=== PATIENT | male | born 1930 | race Caucasian/White ===

== ENCOUNTER 2018-12-05 01:02 | Emergency (ER) | payer MEDICARE, MEDICAID ==
[~2018-12-05] VITALS: Ht 180.3 cm; Wt 77.1 kg
[2018-12-05 01:05] VITALS: BP 135/70
--- NOTE | 2018-12-05 01:05 | NUR ---
ED Nurse Note: Patient FLORA RA 62 from [facility] c/o more altered than normal since 1300. Asleep; withdraws to pain. Simple mask; 6L. IV present on right hand.
--- NOTE | 2018-12-05 01:15 | NUR ---
ED Nurse Note: IV access established. Flu swab, blood and urine collected; sent down to lab.
[2018-12-05] MEDS ORDERED: LEVAQUIN500 MG ORAL (01:30)
[2018-12-05] MEDS ORDERED: SORBITOL 70%30 ML PO (01:30)
[2018-12-05] MEDS ORDERED: VANCOMYCIN1 GM IV (01:30)
[2018-12-05] MEDS ORDERED: CEFEPIME-D1 GM/50 ML IVPB (01:30)
[2018-12-05] MEDS ORDERED: SENNA-S TABLET1 EACH PO (01:30)
[2018-12-05] MEDS ORDERED: VALPROIC A250 MG/5 M PO (01:30)
[2018-12-05 01:57] LABS: BASOPHILS % (AUTO) 0.7 % (0.0-2.0); HEMATOCRIT 56.5 % (42.0-52.0); HEMOGLOBIN 17.6 G/DL (14.2-18.0); LYMPHOCYTES % (AUTO) 7.1 % (20.0-45.0); MEAN CORPUSCULAR VOLUME 99 FL (80-99); MONOCYTES % (AUTO) 12.7 % (1.0-10.0); NEUTROPHILS % (AUTO) 79.5 % (45.0-75.0); PLATELET COUNT 308 K/UL (150-450); RED BLOOD COUNT 5.69 M/UL (4.70-6.10); RED CELL DISTRIBUTION WIDTH 13.5 % (11.6-14.8); WHITE BLOOD COUNT 15.4 K/UL (4.8-10.8)
[2018-12-05 02:08] LABS: ANION GAP 15 mmol/L (5-15); BLOOD UREA NITROGEN 43 mg/dL (7-18); CARBON DIOXIDE 23 MMOL/L (21-32); CHLORIDE 112 MMOL/L (98-107); CREATININE 2.5 MG/DL (0.55-1.30); POTASSIUM 4.8 MMOL/L (3.5-5.1); SODIUM 150 MMOL/L (136-145)
[2018-12-05] MEDS ORDERED: Vancomycin 1 GM in D5W 275 ML IVPB SCH (02:15)
[2018-12-05] MEDS ORDERED: Piperacillin/Tazobactam 3.375 GM in NS 110 ML IVPB ONE (02:15)
[2018-12-05 02:22] LABS: ALANINE AMINOTRANSFERASE 22 U/L (12-78); ALBUMIN/GLOBULIN RATIO 0.5 (1.0-2.7); ALKALINE PHOSPHATASE 99 U/L (46-116); ASPARTATE AMINO TRANSFERASE 24 U/L (15-37); BILIRUBIN,TOTAL 1.7 MG/DL (0.2-1.0); CKMB 1.1 NG/ML (0.0-3.6); CREATINE KINASE 75 U/L (26-308)
[2018-12-05 02:26] LABS: APPEARANCE,URINE CLEAR; BILIRUBIN, URINE NEGATIVE (NEGATIVE); GLUCOSE, URINE (UA) 2+ (NEGATIVE); KETONES,URINE 1+ (NEGATIVE); LEUKOCYTE ESTERASE ,URINE 1+ (NEGATIVE); NITRITE,URINE POSITIVE (NEGATIVE); PH,URINE 5 (4.5-8.0); PROTEIN,URINE 3+ (NEGATIVE); UROBILINOGEN,URINE 1 MG/DL (0.0-1.0)
[2018-12-05 02:28] LABS: BILIRUBIN,DIRECT 0.5 MG/DL (0.0-0.3)
[2018-12-05 02:29] LABS: COLOR,URINE YELLOW
--- NOTE | 2018-12-05 03:15 | NUR ---
ED Nurse Note: lactic reflex drawn; sent down to lab.
[2018-12-05 04:21] VITALS: BP 115/53
[2018-12-05] MEDS ORDERED: Insulin Human Regular 100units/ml 3ml IV ONE (04:30)
--- NOTE | 2018-12-05 05:04 | Emergency Room Report ---
History of Present Illness General Chief Complaint: Altered Mental Status Source: EMS Present Illness HPI Patient is an 88-year-old male brought in by [facility] after increased altered mental status. Patient was noted to have prior history of dementia. He was noted to be baseline confused and minimally responsive. Patient was noted to have previous been making incomprehensible sounds. He had prior history of diabetes. Patient was noted to have previous been in hospice for dementia. He had not been noted to have any fever. He had previous episodes of pneumonia. Allergies: Coded Allergies: No Known Allergies (Unverified , 12/05/18) Patient History Past Medical History: see triage record Reviewed Nursing Documentation: PMH: Agreed; PSxH: Agreed Nursing Documentation-PMH Past Medical History: No History, Except For Hx Cardiac Problems: Yes - Atherosclerotic heart disease Hx Hypertension: Yes Hx Diabetes: Yes - type 2 Hx Gastrointestinal Problems: Yes - BPH, anemia, GERD Hx Neurological Problems: Yes - alzheimers, dementia Review of Systems All Other Systems: limited - limited by mental status Physical Exam Vital Signs Date Time Temp Pulse Resp B/P (MAP) Pulse Ox O2 Delivery O2 Flow Rate FiO2 12/05/18 01:03 97.0 94 20 135/70 96 Nasal Cannula 4.0 General Appearance: lethargic, Chronically Ill ENT: dry mucus membranes Neck: limited range of motion Respiratory: rhonchi - right base Cardiovascular #1: normal peripheral pulses, regular rate, rhythm, no edema Gastrointestinal: normal inspection, non tender, soft Neurologic: aphasia, motor weakness Psychiatric: depressed affect Skin: normal inspection, no rash Medical Decision Making Diagnostic Impression: Primary Impression: Altered mental status Additional Impressions: Hyperglycemia Pneumonia Urinary tract infection Renal insufficiency Dementia ER Course Patient presented for altered mental status. Differential diagnosis included but was not limited to ischemic stroke, subarachnoid hemorrhage, hypoglycemia, spinal cord injury, neurodegenerative disorder, urinary tract infection, hypoxemia. Because of complexity of patient's case laboratory testing and imaging studies were ordered.Laboratory testing was notable for some renal insufficiency as well as elevated white count. Huynh catheter was placed due to some hematuria after catheterization Patient initial lactic acid level was noted to be elevated. Chest x-ray 1 view interpreted by me showed normal cardiac size of the right lower lobe infiltrate. CT of head read by radiology showed atrophic changes. Patient was given IV fluids as well as IV antibiotics. Case was discussed with Dr. Jaqueline Galvan [facility] for transfer for continuity of care. Case #[id number] Labs Test 12/05/18 01:10 12/05/18 01:15 12/05/18 03:35 Arterial Blood pH 7.408 (7.350-7.450) Arterial Blood Partial Pressure CO2 29.6 mmHg (35.0-45.0) Arterial Blood Partial Pressure O2 62.3 mmHg (75.0-100.0) Arterial Blood HCO3 18.3 mmol/L (22.0-26.0) Arterial Blood Oxygen Saturation 91.0 % (95-100) Arterial Blood Base Excess -4.8 (-2-2) Randall Test Positive White Blood Count 15.4 K/UL (4.8-10.8) Red Blood Count 5.69 M/UL (4.70-6.10) Hemoglobin 17.6 G/DL (14.2-18.0) Hematocrit 56.5 % (42.0-52.0) Mean Corpuscular Volume 99 FL (80-99) Mean Corpuscular Hemoglobin 30.9 PG (27.0-31.0) Mean Corpuscular Hemoglobin Concent 31.1 G/DL (32.0-36.0) Red Cell Distribution Width 13.5 % (11.6-14.8) Platelet Count 308 K/UL (150-450) Mean Platelet Volume 7.2 FL (6.5-10.1) Neutrophils (%) (Auto) 79.5 % (45.0-75.0) Lymphocytes (%) (Auto) 7.1 % (20.0-45.0) Monocytes (%) (Auto) 12.7 % (1.0-10.0) Eosinophils (%) (Auto) 0.0 % (0.0-3.0) Basophils (%) (Auto) 0.7 % (0.0-2.0) Urine Color Yellow Urine Appearance Clear Urine pH 5 (4.5-8.0) Urine Specific [place] 1.025 (1.005-1.035) Urine Protein 3+ (NEGATIVE) Urine Glucose (UA) 2+ (NEGATIVE) Urine Ketones 1+ (NEGATIVE) Urine Blood 5+ (NEGATIVE) Urine Nitrite Positive (NEGATIVE) Urine Bilirubin Negative (NEGATIVE) Urine Urobilinogen 1 MG/DL (0.0-1.0) Urine Leukocyte Esterase 1+ (NEGATIVE) Urine RBC Tntc /HPF (0 - 0) Urine WBC 5-10 /HPF (0 - 0) Urine Squamous Epithelial Cells None /LPF (NONE/OCC) Urine Bacteria Moderate /HPF (NONE) Sodium Level 150 MMOL/L (136-145) Potassium Level 4.8 MMOL/L (3.5-5.1) Chloride Level 112 MMOL/L (98-107) Carbon Dioxide Level 23 MMOL/L (21-32) Anion Gap 15 mmol/L (5-15) Blood Urea Nitrogen 43 mg/dL (7-18) Creatinine 2.5 MG/DL (0.55-1.30) Estimat Glomerular Filtration Rate mL/min (>60) Glucose Level 483 MG/DL (74-106) Calcium Level 10.0 MG/DL (8.5-10.1) Total Bilirubin 1.7 MG/DL (0.2-1.0) Direct Bilirubin 0.5 MG/DL (0.0-0.3) Aspartate Amino Transf (AST/SGOT) 24 U/L (15-37) Alanine Aminotransferase (ALT/SGPT) 22 U/L (12-78) Alkaline Phosphatase 99 U/L (46-116) Total Creatine Kinase 75 U/L (26-308) Creatine Kinase MB 1.1 NG/ML (0.0-3.6) Creatine Kinase MB Relative Index 1.4 Troponin I 0.041 ng/mL (0.000-0.056) Pro-B-Type Natriuretic Peptide 737 pg/mL (0-125) Total Protein 9.1 G/DL (6.4-8.2) Albumin 3.0 G/DL (3.4-5.0) Globulin 6.1 g/dL Albumin/Globulin Ratio 0.5 (1.0-2.7) Lipase 70 U/L (73-393) Lactic Acid Level 3.80 mmol/L (0.66-2.22) EKG Diagnostic Results Rate: tachycardiac Rhythm: NSR ST Segments: no acute changes Last Vital Signs Date Time Temp Pulse Resp B/P (MAP) Pulse Ox O2 Delivery O2 Flow Rate FiO2 12/05/18 04:21 97.6 105 20 115/53 91 Simple Mask 6.0 Status: unchanged Disposition: XFER SHT-TRM HOSP Condition: Serious Referrals: [facility] (PCP) Tho Monk MD Dec 05, 2018 05:04
[2018-12-05] MEDS ORDERED: Albuterol/Ipratropium 3ml neb HHN ONE (05:15)
--- NOTE | 2018-12-05 06:00 | NUR ---
ED Nurse Note: Reassessed blood glucose; 415. Notified ERMD; received no new orders.
[2018-12-05 06:09] VITALS: BP 106/61
[2018-12-05 06:57] VITALS: BP 123/61
--- NOTE | 2018-12-05 07:20 | NUR ---
ED Nurse Note: Received patient in bed. VSS on 6L simple mask. IV sites intact, patent.
[2018-12-05 07:30] VITALS: BP 104/60
--- NOTE | 2018-12-05 08:25 | NUR ---
ED Nurse Note: report given to Krystina CHAMBERS at [facility].
[2018-12-05 08:34] VITALS: BP 113/66
--- NOTE | 2018-12-05 08:36 | NUR ---
ED Nurse Note: Endorsed patient to [facility], report given to Timothy CHAMBERS, patient's packet given.
--- NOTE | 2018-12-05 09:18 | Diagnostic Imaging Report ---
Indication: Abdominal pain Technique: Continuous helical transaxial imaging of the abdomen and pelvis was obtained from the lung bases to the pubic symphysis. No intravenous contrast was administered. Coronal 2-D reformats were also obtained. Automatic Exposure Control was utilized. Total Dose length Product (DLP): 947.[address] Dose Index Volume (CTDIvol): 18.16 mGy Comparison: none Findings: There is dense consolidation at the right lung base and to a lesser extent at the left lung base suspicious for pneumonia. Bullous changes are present at the lung bases consistent with emphysema particularly in the anteromedial aspect of the left lung base. Extensive calcification of the pancreas demonstrated. Aorta is moderately calcified. There are punctate calcifications within both kidneys likely nonobstructive stones. Hyperdense focus in the upper pole right kidney is probably hemorrhagic or proteinaceous cyst versus solid lesion. Ill-defined hypodensity in the left kidney noted nonspecific and not evaluated adequately on this study. There is moderate to severe fecal retention within the rectosigmoid colon which show appear moderately distended. There is a Huynh catheter which appears to be in good position in the lumen of the urinary bladder. The gallbladder is noted. No evidence of bowel obstruction. No free fluid or free air identified. Generalized osteopenia noted. There is narrowing of intervertebral discs and accompanying endplate osteophyte formation. Hypertrophied facet joints also demonstrated.. IMPRESSION: Severe fecal impaction in the rectosigmoid colon. Basilar pneumonia on the right and possibly on the left as well. Correlate clinically Pulmonary emphysema. Moderate to severe atherosclerotic vascular disease. Bilateral nonobstructive renal stones. Hyper density in the right kidney. Postsedation is cyst versus solid lesion. Ill-defined hypodensity left kidney nonspecific. Solid versus cystic. Other incidental findings as above. [facility] has communicated the preliminary results to the Emergency Department. Their findings are largely concordant with this report. The CT scanner at [facility] is accredited by the [employer] and the scans are performed using dose optimization techniques as appropriate to a performed exam including Automatic Exposure control.
--- NOTE | 2018-12-05 09:44 | Diagnostic Imaging Report ---
Indication: Altered mental status Technique: Contiguous 5 mm thick transaxial imaging of the head obtained in a Siemens Sensation [address] scanner. Soft tissue and bone windows generated. Automatic Exposure Control was utilized. Total Dose length Product (DLP): 1319.[address] Dose Index Volume (CTDIvol): 70.38 mGy Comparison: none Findings: There is moderate prominence of the ventricles, basal cisterns, and cerebral sulci consistent with atrophy. Moderate, nonspecific, white matter hypoattenuation is noted throughout the brain consistent with chronic small vessel disease. There is no midline shift, edema, acute hemorrhage, mass effect, or abnormal extra-axial fluid collections. Bones and extra osseous soft tissues are unremarkable. Minimal ethmoid sinus opacification noted. Impression: No acute intracranial bleed, mass effect or edema. Moderate atrophy of the brain. Evidence of chronic small vessel disease involving white matter tracts. [facility] has communicated the preliminary results to the Emergency Department. Their findings are largely concordant with this report. The CT scanner at [facility] is accredited by the [employer] and the scans are performed using dose optimization techniques as appropriate to a performed exam including Automatic Exposure control.
--- NOTE | 2018-12-05 10:48 | Diagnostic Imaging Report ---
Indication: Dyspnea Comparison: None A single view chest radiograph was obtained. Findings: Hilar vessels are prominent. There is a suggestion of a right perihilar infiltrate possibly pneumonia. There is a nodular density in the left perihilar region. Underlying mass not excluded. Bones are osteopenic. IMPRESSION: Nodular opacity left perihilar region requires further evaluation. Recommend CT. Right perihilar infiltrate suspected. Correlate for pneumonia.
--- NOTE | 2018-12-05 17:19 | Cardiology Report ---
APPROVED REPORT EKG Measurement Heart [id number] Sinus tachycardia with premature supraventricular complexes Otherwise normal ECG
== END 2018-12-05 08:40 | disposition short-term general hospital (02) ==
LOC: EDBD 01:02 → EMR 01:19
DX: R41.82 Altered mental status, unspecified (principal); E11.65 Type 2 diabetes mellitus with hyperglycemia; J18.9 Pneumonia, unspecified organism; N39.0 Urinary tract infection, site not specified; G30.9 Alzheimer's disease, unspecified; F02.80 Dementia in other diseases classified elsewhere, unspecified severity, without behavioral disturbance, psychotic disturbance, mood disturbance, and anxiety; N28.9 Disorder of kidney and ureter, unspecified; K21.9 Gastro-esophageal reflux disease without esophagitis; I10 Essential (primary) hypertension; N40.0 Benign prostatic hyperplasia without lower urinary tract symptoms
CPT/HCPCS: 36415; 36600; 70450; 71045; 74176; 80053; 81003; 82248; 82550; 82553; 82803; 83605; 83690; 83880; 84484; 85025; 86710; 87040; 87081; 87086; 93005; 94640; 94664; 96361; 96365; 96375; 99285; J1815; J2543; J3370; J7620